=== PATIENT | male | born 1965 | race Caucasian/White ===

== ENCOUNTER → 2020-04-15 08:50 | Outpatient (CLI) | payer BC, SELFPAY ==
[2020-04-15 09:07] LABS: Basophils # 0.1 K/mm3 (0-0.2); Basophils % 0.7 % (0.1-2.0); Eosinophils # 0.2 K/mm3 (0.0-0.4); Eosinophils % 3.4 % (0.1-12.0); Hematocrit 52.9 % (42.0-52.0); Lymphocytes # 1.9 K/mm3 (0.7-4.5); Lymphocytes % 29.8 % (10-50); Mean Corpuscular HGB Conc 34.1 g/dL (31.8-35.4); Mean Corpuscular Hemoglobin 32.4 pg (27.0-31.2); Mean Corpuscular Volume 94.9 fl (80-94); Mean Platelet Volume 6.7 fl (7.4-10.4); Monocytes # 0.4 K/mm3 (0.1-1.0); Monocytes % 6.2 % (1.7-9.3); Neutrophils # 3.9 K/mm3 (1.8-7.8); Neutrophils % 59.8 % (37.0-80.0); Platelet Count 232 K/mm3 (142-424); Red Blood Count 5.57 M/mm3 (4.60-6.20); White Blood Count 6.5 K/mm3 (4.8-10.8)
[2020-04-15 09:31] LABS: Hemoglobin A1C 5.7 % (4.0-6.0)
[2020-04-15 09:53] LABS: Alanine Aminotransferase 27 U/L (12-78); Albumin Level 4.2 g/dl (3.5-5.0); Albumin/Globulin Ratio 1.7 (1.1-1.8); Alkaline Phosphatase 55 U/L (38-126); Anion Gap 9.7 mEq/L (5-15); Aspartate Amino Transferase 28 U/L (17-59); Bilirubin,Total 0.7 mg/dl (0.2-1.3); Blood Urea Nitrogen 14 mg/dl (9-20); Calcium 9.6 mg/dl (8.4-10.2); Carbon Dioxide 31 mmol/L (22.0-30.0); Chloride 102 mmol/L (98-107); Chol/HDL Ratio 3.8 (1-3.5); Cholesterol 161 mg/dl (140-200); Estimated Glomerular Filt Rate 78 ml/min (>60); GFR (African American) 95 ML/MIN (>60); Globulin 2.5 g/dL (1.3-3.2); Glucose 118 mg/dl (74-100); HDL Cholesterol 42 mg/dl (40-60); Potassium 4.7 mmoL/L (3.5-5.1); Sodium 138 mmol/L (136-145); Total Protein,Serum 6.7 g/dl (6.3-8.2); Triglycerides 144 mg/dl (30-150); VLDL Cholesterol 29 mg/dL (0-40)
[2020-04-15 10:04] LABS: Direct LDL Cholesterol 106.35 mg/dL (100-129)
[2020-04-15 10:24] LABS: Prostate Specific Ag Screen 1.3 ng/ml (0.0-4.0)
[2020-04-16 10:11] LABS: Testosterone,Total 612 ng/dL (264-916)
[2020-04-19 15:53] LABS: Vitamin B12 277 pg/mL (239-931)
[2020-04-19 16:40] LABS: Ferritin 105 ng/ml (17.9-464)
== END ==
PROVIDERS: Visit Provider Nurse Practitioner Family
DX: Z00.00 Encounter for general adult medical examination without abnormal findings (principal); R79.89 Other specified abnormal findings of blood chemistry; N52.9 Male erectile dysfunction, unspecified; Z12.5 Encounter for screening for malignant neoplasm of prostate
CPT/HCPCS: 36415; 80053; 80061; 82607; 82728; 83036; 84403; 84443; 85025; G0103

== ENCOUNTER → 2020-06-29 07:54 | Outpatient (CLI) | payer BC, SELFPAY ==
[2020-06-29 10:02] LABS: Coronavirus 19 IgG Antibody Negative (Negative); Coronavirus 19 IgM Antibody Negative (Negative)
== END ==
PROVIDERS: Visit Provider Internal Medicine Gastroenterology
DX: Z01.818 Encounter for other preprocedural examination (principal); Z12.11 Encounter for screening for malignant neoplasm of colon
CPT/HCPCS: 36415; 86328

== ENCOUNTER 2020-06-30 08:56 | Day surgery (SDC) | payer BC, SELFPAY ==
[2020-06-22 12:20] VITALS: BMI 32.7
[2020-06-30] VITALS (7 sets, daily range): BP systolic 93–143; BP diastolic 60–92; PULSE 67–87; RESP 16–18; TEMP 36.2; O2SAT 93–99
--- NOTE | 2020-06-30 10:33 | P.PCN_ITS ---
[facility] [place] Procedure Note Procedure Note:: Colonoscopy Procedure Report: Colonoscopy with cold snare polypectomy Endoscopist: Prateek Mcclain II, MD Referring physician: MARQUES Monroy Date of Procedure: June 30, 2020 Equipment: Olympus 180 variable stiffness pediatric colonoscope Sedation: MAC sedation Indication: Mr. Beck is a 54-year-old gentleman who is here for initial screening colonoscopy. He reports no abdominal pain, weight loss, change in his bowel habits or rectal bleeding. He reports no family history of colon cancer. Procedure: Prior to the procedure, a history and physical exam was performed, and patient's medications and allergies were reviewed. The risks, benefits and alternatives of the sedation and procedure were discussed with the patient. All questions were answered and informed consent was obtained. The patient was brought to the procedure room. Patient identification and proposed procedure were verified by the physician and the nurse. The patient was placed in a left lateral decubitus position and the scope was passed under direct vision. Throughout the procedure, the patient's blood pressure, pulse, and oxygen saturations were monitored continuously. The colonoscopy was accomplished without difficulty. The patient tolerated the procedure well. Findings: On digital rectal examination there was normal rectal tone. There were no external hemorrhoids. The prostate was 2+, smooth, soft, symmetric without nodules. The colonoscope was introduced through the anal canal to the rectum and advanced to the cecum. The ileocecal valve and appendiceal orifice were identified. The scope was advanced a short distance into the ileum which appeared grossly normal. The scope was then withdrawn into the colon. There were 2 colon polyps (cecum x1 (9 mm) and transverse x1 (5 mm)) which were both removed via cold snare polypectomy. The remaining cecum, ascending, transverse, descending, sigmoid and rectum were grossly normal. There were no mucosal abnormalities identified. Upon retroflexion within the rectum there were grade 1-2 internal hemorrhoids.The preparation was excellent throughout with Pitts Preparation Score of 9. The cecal time was 12 minutes. Impression: 1. Colonic polyps x2 (5 and 9 mm) 2. Grade 1-2 internal hemorrhoids Plan: I will follow up the polyp pathology and recommend repeat colonoscopy again in 5-7 years based upon the polyp histology. I would encourage fiber supplementation on a long-term daily maintenance basis.
--- NOTE | 2020-06-30 10:59 | HMH.ANESCL ---
[facility] Anesthesia Checklist - Structural Data Admitted From: Home Planned Operative Procedure/s: colonoscopy Consent for Planned Operative Procedure(s) Verified: Yes - Airway Assessment C-Spine Mobility Assessed: Yes TMJ Mobility Assessed: Yes Dentition: Good Dentition - Neurological Assessment Level of Consciousness: Awake, Alert, Appropriate - Anesthesia Plan Anesthesia Risk discussed: Yes Anesthesia Plan: Verified ASA Class: II Anesthesia Type: MAC [facility] History I have reviewed the patient's past medical history: Yes Medical History: Denies:: Cancer, Diabetes Mellitus Type 1, Diabetes Mellitus Type 2, Internal Pacemaker, MRSA, Seizures *Have you ever received a pneumonia vaccine?: No *Have you received a flu vaccine this season?: No Anesthesia experience/problems:: none Other Surgeries: No: Pacemaker Amputation: No Fractures: No - *Social History Last grade of school completed: Advanced degree Smoking Status: Former smoker # Packs/Day (cigarettes): 1 Smoking End Date: 08/11/2017 Alcohol Intake: current Alcohol Intake Frequency:: a few times a week Substance Use Type: denies use *Occupational Status:: employed Housing: house Household Members: family *Travel in the last 8 weeks: None Family Hx:: No significant family history
== END 2020-06-30 11:30 | disposition home or self-care (01) ==
LOC: OUTP 08:59
PROVIDERS: PCP Nurse Practitioner Family; Visit Provider Internal Medicine Gastroenterology
PROC: 0DJD8ZZ Inspection of Lower Intestinal Tract, Via Natural or Artificial Opening Endoscopic (ICD-10-PCS; CPT 45378; principal; 2020-06-30 10:00)
DX: Z12.11 Encounter for screening for malignant neoplasm of colon (principal); K63.5 Polyp of colon; K64.0 First degree hemorrhoids; Z83.3 Family history of diabetes mellitus; Z87.891 Personal history of nicotine dependence
CPT/HCPCS: 45385

== ENCOUNTER → 2022-12-07 07:53 | Outpatient (CLI) | payer BC, SELFPAY ==
[2022-12-07 09:20] LABS: Basophils # 0.1 K/mm3 (0-0.2); Eosinophils # 0.1 K/mm3 (0.0-0.4); Eosinophils % 2.3 % (0.1-12.0); Hematocrit 49.1 % (42.0-52.0); Hemoglobin 16.3 g/dL (14.1-18.0); Lymphocytes # 1.4 K/mm3 (0.7-4.5); Lymphocytes % 25.8 % (10-50); Mean Corpuscular HGB Conc 33.2 g/dL (31.8-35.4); Mean Corpuscular Hemoglobin 31.6 pg (27.0-31.2); Mean Corpuscular Volume 95.4 fl (80-94); Mean Platelet Volume 7.1 fl (7.4-10.4); Monocytes # 0.3 K/mm3 (0.1-1.0); Monocytes % 5.8 % (1.7-9.3); Neutrophils # 3.6 K/mm3 (1.8-7.8); Neutrophils % 65.2 % (37.0-80.0); Platelet Count 220 K/mm3 (142-424); Red Blood Count 5.15 M/mm3 (4.60-6.20); Red Cell Distribution Width 13.3 % (11.5-17.5); White Blood Count 5.5 K/mm3 (4.8-10.8)
[2022-12-07 09:25] LABS: Chloride 98 mmol/L (98-107); Sodium 138 mmol/L (136-145)
[2022-12-07 09:27] LABS: Blood Urea Nitrogen 16 mg/dl (9-20); Estimated Glomerular Filt Rate 100 ml/min (>60); GFR (African American) 121 ML/MIN (>60)
[2022-12-07 09:28] LABS: Alanine Aminotransferase 32 U/L (12-78); Albumin/Globulin Ratio 1.5 (1.1-1.8); Alkaline Phosphatase 49 U/L (38-126); Aspartate Amino Transferase 32 U/L (17-59); Bilirubin,Total 0.7 mg/dl (0.2-1.3); Calcium 8.8 mg/dl (8.4-10.2); Carbon Dioxide 29 mmol/L (22.0-30.0); Chol/HDL Ratio 4.4 (1-3.5); Cholesterol 155 mg/dl (140-200); Globulin 2.6 g/dL (1.3-3.2); Glucose 107 mg/dl (74-100); HDL Cholesterol 35 mg/dl (40-60); Total Protein,Serum 6.6 g/dl (6.3-8.2); Triglycerides 164 mg/dl (30-150); VLDL Cholesterol 33 mg/dL (0-40)
[2022-12-07 09:41] LABS: Direct LDL Cholesterol 96.04 mg/dL (100-129)
[2022-12-07 09:59] LABS: Thyroid Stimulating Hormone 2.29 uIU/mL (0.465-4.68)
[2022-12-07 10:20] LABS: Vitamin B12 273 pg/mL (239-931)
[2022-12-07 10:31] LABS: Hemoglobin A1C 5.3 % (4.0-6.0)
[2022-12-08 08:13] LABS: Testosterone,Total 438 ng/dL (264-916)
== END ==
PROVIDERS: PCP Nurse Practitioner Family; Visit Provider Nurse Practitioner Family
DX: Z00.00 Encounter for general adult medical examination without abnormal findings (principal); R53.81 Other malaise
CPT/HCPCS: 36415; 80053; 80061; 82607; 83036; 84403; 84443; 85025

== ENCOUNTER 2024-03-19 06:24 | Outpatient (CLI) | payer BC, SELFPAY ==
--- NOTE | 2024-03-19 | CT_ITS ---
FINAL REPORT TECHNIQUE: Axial images were obtained from the lung apex to the mid abdomen by computed tomography. This study was performed with techniques to keep radiation doses as low as reasonably achievable (ALARA). Individualized dose reduction techniques using automated exposure control or adjustment of mA and/or kV according to the patient's size were employed. CLINICAL HISTORY: .CURRENT SMOKER 1PPD X39 YEARS FINDINGS: CHEST CT LOW DOSE CTDI vol (mGy): 2.90 DLP (mGy-cm): 92.21 There is no axillary adenopathy. There is no hilar or mediastinal adenopathy. The heart is normal in size. There is [id number] coronary artery calcification. There is no pericardial or pleural effusion. There is a 4 mm nodule near the right major fissure well seen on image 45. Limited images of the upper abdomen reveals cholecystectomy. IMPRESSION: Nodule near the right major fissure. Lung RADS category 2. Recommend 12 month follow-up low-dose chest CT. Reviewed, Interpreted and Dictated by Sathya Preston III, MD Transcribed by Prema La Authenticated and [facility]
== END 2024-03-19 23:59 | disposition home or self-care (01) ==
LOC: RAD 06:25
PROVIDERS: PCP Nurse Practitioner Family; Visit Provider Nurse Practitioner Family
DX: Z87.891 Personal history of nicotine dependence (principal)
CPT/HCPCS: 71271

== ENCOUNTER 2025-04-18 06:43 | Outpatient (CLI) | payer BC, SELFPAY ==
--- OUTSIDE RECORDS SUMMARY | 2025-04-18 06:46 | XMS_ITS | Clinical Summary ---
[facility] Address [address] [place] [address] Care Team Providers Care Coach Mechanic Name Role Phone Viraj Gordillo MD Primary Care Provider + [phone] Allergies No known active allergies Medications amoxicillin-clav ulanate (AUGMENTIN) 875-125 MG per tabletIndication s:Acute maxillary sinusitis, recurrence not specified Take 1 tablet by mouth 2 (two) times a day. 20 tablet 04/29/2016 Active Active Problems No known active problems Family History Medical History Relation Name Comments Obesity Mother Relation Name Status Comments Father Alive Mother Alive Social History Tobacco Use Types Packs/Day Years Used Date Smoking Tobacco: Former Cigarettes Q uit: 12/09/2013 Smokeless Tobacco: Never Alcohol Use Standard Drinks/Week Comments Yes 0 (1 standard drink = 0.6 oz pur e alcohol) 2-3 per week Abuse Screen Answer Date Recorded Unsafe at Home or Work/School Not on file Feels Threatened by Someone? Not on file 04/2023 Does Anyone Keep You from Co ntacting Others or Doint Things Outside the Home? Not on file 05/19/2023 Physical Sign of Abuse Present Not on file 1 Housing Stability Answer Date Recorded Current Living Arrangements Not on file 04/2023 Potentially Unsafe Housing Conditions Not on gris e 05/19/2023 Family and Community Support Answer Elijah e Recorded Help with Day-to-Day Activities Not on file 05/19/2023 Lonely or Isolated Not on file 05/19/2023 Employment Answer Date Recorded Do you want help finding or keeping work or a maliha b? Not on file 05/19/2023 Disabilities Answer Date Recorded Concentrating, Remembering, or Making Decisions Difficulty Not on file 05/19/2023 Doing Errands Independently Difficulty Not on fi le 05/19/2023 Education Answer Date Recorded Help with school or training? Not on file Preferred Language Not on file 05/19/2023 Sex and Gender Information Value Date Recorded Sex Assigned at Not on file Legal Sex Male 12:09 PM EDT Gender Identity Not on file Sexual Orientation Not on file Last Filed Vital Signs Vital Sign Reading Time Taken Comments Blood Pressure - - Pulse 91 04/29/2016 12:23 PM EDT Temperature 36.5 C (97.7 F) 04/29/2016 12:23 PM EDT Respiratory Rate 16 04/29/2016 12:23 PM EDT Oxygen Saturation 97% 04/29/2016 12:23 PM EDT Inhaled Oxygen Concentration - - Weight 98.4 kg (217 lb) 04/29/2016 12:23 PM EDT Height 172.7 cm (5' 8 ) 04/29/2016 12:23 PM EDT Body Mass Index 32.99 04/29/2016 12:23 PM EDT Plan of Treatment Health Maintenance Due Date Last Done Comments ANNUAL PHYSICAL 1965 HEPATITIS C SCREENING 1967 TDAP/TD VACCINES (1 - Tdap) 1986 COLOGUARD 2012 COLON CANCER SCREENING 5 YEAR SIGMOIDOSCOPY 2012 COLONOSCOPY [address] CANCER SCREENING [address] COLONOGRAPHY 2012 FECAL OCCULT BLOOD TEST 2012 FIT Testing (1 year) 2012 Pneumococcal Vaccine 50+ (1 of 1 - PCV) 2017 ZOSTER VACCINE (1 of 2) 2017 COVID-19 Vaccine (1 - season) 2025 INFLUENZA VACCINE 05/11/2025 Insurance PPO Care Teams Coach Mechanic Relationship Specialty Start Date End Date Viraj Gordillo MD [address] [facility] [address] [facility] [place] [address] PCP - General Adolescent Medicine 04/29/16
--- OUTSIDE RECORDS SUMMARY | 2025-04-18 06:46 | XMS_ITS | Clinical Summary ---
Author Organization Healthcare Address [address] [place] [address] Care Team Providers Care Group President Name Role Phone Maryellen Riggins ANNA Primary Care Provider [phone] Allergies No known active allergies Medications oxyCODONE (Roxicodone) 5 MG immediate release tablet Take 1 tablet (5 mg) by mouth every 6 (six) hours if needed for severe pain. 10 tablet 5 Active Additional Information Patient not taking.Reported on 08/27/2024 escitalopram (Lexapro) 20 MG tablet take 1 tablet by mouth every day for 90 days 4 Active Active Problems Problem Noted Date Diagnosed Date Flexor tendon laceration of finger with open wou nd 08/10/2024 Immunizations Immunization Administration Dates Next Due Tdap 08/10/2024 Social History Tobacco Use Types Packs/Day Years Used Date Smoking Tobacco: Every Day Cigarettes Smokeless Tobacco: Never Tobacco Cessation:Ready to Q uit: Not Asked; Counseling Given: Not Answered Sex and Gender Information Value Date Recorded Sex Assigned at Male 08/12/2024 11:58 AM EST Legal Sex Male 6:06 PM EDT Gender Identity Male 08/12/2024 11:58 AM EST Sexual Orientation Not on file Last Filed Vital Signs Vital Sign Reading Time Taken Comments Blood Pressure 130/92 08/27/2024 10:10 AM EST Pulse 66 08/27/2024 10:10 AM EST Temperature 37.1 C (98.8 F) 08/12/2024 6:00 PM EST Respiratory Rate 16 08/12/2024 6:00 PM EST Oxygen Saturation 97% 08/27/2024 10:10 AM EST Inhaled Oxygen Concentration - - Weight 95.3 kg (210 lb) 08/27/2024 10:10 AM EST Height 170.2 cm (5' 7 ) 08/27/2024 10:10 AM EST Body Mass Index 32.89 08/27/2024 10:10 AM EST Plan of Treatment Health Maintenance Due Date Last Done Comments [facility]-Depression Screening 1967 [facility]-HIV Screening 1967 [facility]-Hepatitis C Screening 1967 [facility]-Infant/Child/Adol SDOH Screenings 1967 [facility]- SDOH Screenings 1985 [facility]-Adult SDOH Screenings 1985 [facility]-Hepatitis B Vaccines (1 of 3 - 19+ 3-dose series) 1986 [facility]-Pneumococcal Vaccine: 50+ Years (1 of 2 - PCV) 1986 CT Colonography 2012 Colonoscopy 2012 FIT-DNA 2012 FIT 2012 FOBT 2012 Sigmoidoscopy 2012 [facility]-Colorectal Cancer Screening 2012 [facility]-Zoster Vaccines (1 of 2) 2017 FUO-ALCMA-44 Vaccine (2 - season) 2025 01/31/2021 [facility]-Influenza Vaccine (#1) 2025 [facility]-DTaP,Tdap,and Td Vaccines (2 - Td or Tdap) 08/10/2034 08/10/2024 [facility]-Obesity Intervention Completed 025, 09/22/2024, 2024, Additional history exists HPV Vaccines Aged Out No longer eligi ble based on patient's age to complete this topic [facility]-HIB Vaccines Aged Out No longer e ligible based on patient's age to complete this topic [facility]-Hepatitis A Vaccines Aged Out No longer eligible based on patient's age to complete this topic [facility]-IPV Vaccines Aged Out No longer e ligible based on patient's age to complete this topic [facility]-Rotavirus Vaccines Aged Out No lo nger eligible based on patient's age to complete this topic Goals Goal Patient Goal Type Associated Problems Recent Progress Patient-Stated? Author LTG OT Impaired Function: Patient will decrease QUICK DASH score to less than 25% by discharge. Occupational Therapy Improving( 9:24 AM EST) No Alan Puentes Patient will demonstrate correct performance of HEP to increase AROM for composite fist within 6 weeks post-op. Occupational Therapy Improving( 9:24 AM EST) No Alan Puentes Pt will be independent with edema control/scar management technique in the next 4 weeks. Occupational Therapy Improving( 9:24 AM EST) No Alan Puentes Medical Devices Implanted Type Area Prover Device Identifier Shelf Expiration Date Model / Serial / Lot Graft Avance Nerve 1-2mm - [id number] Implanted:Qty: 1 on 08/12/2024 by Linda Bradley MD at [facility] Left: Hand [employer] [id number] 04/10/2026 [id number] / / [id number] Description:Thaw time 2 darlyn anderson per 's instructions, per Cruz/Michael/Melissa/ds Insurance ANTH Care Teams Group President Relationship Specialty Start Date End Date Maryellen Riggins APRN [address] [facility] [address] [facility] [address] [place] [address] PCP - General 08/10/24
--- NOTE | 2025-04-18 06:49 | CT_ITS ---
FINAL REPORT TECHNIQUE: Thin section axial images were obtained through the lungs using a low-dose technique per lung cancer screening protocol. Reconstruction images were obtained using the axial data. Exam was performed using dose reduction technique. CLINICAL HISTORY: HISTORY OF TOBACCO USE CURRENT SMOKER 1PPD X40 YEARS FINDINGS: CTDLvol: 2.9 DLP: 96.38 Current smoker 40 pack year history Lungs: No acute pulmonary abnormality. There is a stable 4 mm nodule in the right lower lobe, just posterior to the right major fissure. This is seen on series 4, image 47. No new nodules or masses. Lymph nodes: No thoracic lymphadenopathy. Mediastinum: Heart size is normal. Pleura/pericardium: No pleural or pericardial effusion. Other: No acute abnormality in the upper abdomen. IMPRESSION: Stable right lower lobe nodule. No new abnormality. Lung RADS: 2 Recommendation: 12-month follow-up low-dose chest CT. Authenticated and ERN
== END 2025-04-18 23:59 | disposition home or self-care (01) ==
LOC: RAD 06:45
PROVIDERS: PCP Nurse Practitioner Family; Visit Provider Nurse Practitioner Family
DX: R91.1 Solitary pulmonary nodule (principal); Z87.891 Personal history of nicotine dependence
CPT/HCPCS: 71271